=== PATIENT | male | born 1980 | race American Indian/Alaskan Native ===

== ENCOUNTER 2021-01-28 16:02 | Emergency (ER) | payer MEDICAID, OTHER | END 2021-01-28 18:02 | disposition left against medical advice (07) | LOC: DL.ED 16:02 | DX: Z53.21 Procedure and treatment not carried out due to patient leaving prior to being seen by health care provider (principal) | CPT/HCPCS: U0002 ==

== ENCOUNTER 2021-01-28 19:37 | Emergency (ER) | payer OTHER ==
[2021-01-28] MEDS ORDERED: Ondansetron 4 MG Tab.DIS PO ONE (19:38)
[2021-01-28] MEDS ORDERED: Sodium Chloride 0.9% 1,000 ML IV ONE (19:49)
[2021-01-28] MEDS ORDERED: Ondansetron 4 MG/2 ML SDV IVPUSH ONE (19:53)
--- NOTE | 2021-01-28 20:09 | EDM.PDOC ---
ED HPI GENERAL MEDICAL PROBLEM - General Chief Complaint: Respiratory Problem Stated Complaint: AMBULANCE Time Seen by Provider: 01/28/21 19:40 Source of Information: Reports: Patient History Limitations: Reports: No Limitations - History of Present Illness INITIAL COMMENTS - FREE TEXT/NARRATIVE: ED with c/o nausea and vomiting today. Emesis x 2. Fever cough some congestions. Presented to ED earlier today tested positive for COVID but left without being seen prior to lab result. Prior to EMS had sharp stabbing sensation in left chest under axxila that has resolved Abdomen Pain Score (Numeric/FACES): 3 - Related Data Allergies Allergy/AdvReac Type Severity Reaction Status Date / Time No Known Allergies Allergy Verified 01/28/21 19:45 Home Meds: Home Meds Acetaminophen [Tylenol Extra Strength] 1,000 mg PO BID 01/28/21 [History] Ibuprofen 400 mg PO 01/28/21 [History] glipiZIDE [Glucotrol] 01/28/21 [History] metFORMIN [Glucophage] 1,000 mg PO BID 01/28/21 [History] Past Medical History Cardiovascular History: Reports: High Cholesterol, Hypertension Endocrine/Metabolic History: Reports: Diabetes, Type II Hematologic History: Reports: None Oncologic (Cancer) History: Reports: None - Infectious Disease History Infectious Disease History: Reports: Chicken Pox, MRSA, Novel Coronavirus Social & Family History - Tobacco Use Tobacco Use Status *Q: Never Tobacco User - Caffeine Use Caffeine Use: Reports: Soda - Recreational Drug Use Recreational Drug Use: Yes Recreational Drug Type: Reports: Marijuana/Hashish ED ROS GENERAL - Review of Systems Review Of Systems: See Below Constitutional: Reports: Fever, Malaise, Decreased Appetite HEENT: Reports: No Symptoms Respiratory: Reports: Pleuritic Chest Pain, Cough Cardiovascular: Reports: No Symptoms GI/Abdominal: Reports: Diarrhea, Decreased Appetite, Nausea, Vomiting : Reports: No Symptoms Musculoskeletal: Reports: No Symptoms Skin: Reports: No Symptoms Neurological: Reports: No Symptoms Psychiatric: Reports: No Symptoms ED EXAM, GENERAL - Physical Exam Exam: See Below Exam Limited By: No Limitations General Appearance: Alert, Anxious Eye Exam: Bilateral Eye: EOMI, Periorbital Changes Ears: Normal External Exam Nose: Normal Inspection Throat/Mouth: Normal Inspection Head: Atraumatic, Normocephalic Neck: Normal Inspection Respiratory/Chest: No Respiratory Distress, Lungs Clear, Decreased Breath Sounds (bases) Cardiovascular: Normal Peripheral Pulses, Regular Rate, Rhythm GI/Abdominal: Normal Bowel Sounds, Soft, Non-Tender Back Exam: Normal Inspection, Full Range of Motion Extremities: Normal Inspection Neurological: Alert, Oriented, Normal Cognition Psychiatric: Normal Affect, Normal Mood Skin Exam: Warm, Dry, Intact, Normal Color #1 Interpretation EKG Date: 01/28/21 Time: 19:34 Rhythm: NSR Rate (Beats/Min): 75 [place]: Normal P-Wave: Present QRS: Normal ST-T: Normal QT: Normal Comparison: NA - No Prior EKG Course - Vital Signs Last Recorded V/S: Last Vital Signs Temp 99.1 F 01/28/21 19:40 Pulse 86 01/28/21 19:40 Resp 18 01/28/21 20:30 BP 133/86 01/28/21 20:30 Pulse Ox 98 01/28/21 20:30 - Orders/Labs/Meds Labs: Laboratory Tests 01/28/21 01/28/21 01/28/21 Range/Units 19:50 19:50 19:50 WBC 7.5 (5.0-10.0) 10^3/uL RBC 5.15 (4.6-6.2) 10^6/uL Hgb 14.5 (14.0-18.0) g/dL Hct 42.6 (40.0-54.0) % MCV 82.7 (80-100) fL MCH 28.2 (27.0-34.0) pg MCHC 34.0 (33.0-35.0) g/dL Plt Count 226 (150-450) 10^3/uL Neut % (Auto) 74.9 (42.2-75.2) % Lymph % (Auto) 11.5 L (20.5-50.1) % [place] % (Auto) 13.4 H (2-8) % Eos % (Auto) 0.1 L (1.0-3.0) % Baso % (Auto) 0.1 (0.0-1.0) % PT 10.3 (9.0-12.0) SEC INR 1.0 (0.9-1.2) D-Dimer, Quantitative 299 (0-400) ng/mL Sodium 136 (136-145) mmol/L Potassium 3.5 (3.5-5.1) mmol/L Chloride 100 (98-107) mmol/L Carbon Dioxide 20 L (21-32) mmol/L Anion Gap 19.5 H (7-13) mEq/L BUN 13 (7-18) mg/dL Creatinine 0.94 (0.70-1.30) mg/dL Est Cr Clr Drug Dosing 108.94 mL/min Estimated GFR (MDRD) > 60 BUN/Creatinine Ratio 13.8 (No establ ref range) Glucose 184 H (70-99) mg/dL Lactic Acid (0.4-2.0) mmol/L Calcium 8.5 (8.5-10.1) mg/dL Magnesium 1.8 (1.8-2.4) mg/dL Total Bilirubin 0.5 (0.2-1.0) mg/dL AST 21 (15-37) U/L ALT 43 (16-63) U/L Alkaline Phosphatase 73 (46-116) U/L Troponin I High Sens 9 (<=76) pg/mL C-Reactive Protein 2.4 H (0.0-0.9) mg/dL Total Protein 7.6 (6.4-8.2) g/dL Albumin 3.7 (3.4-5.0) g/dL Globulin 3.9 Albumin/Globulin Ratio 0.9 Amylase 32 (25-115) U/L Lipase 82 (73-393) U/L /30/21 Range/Units 19:50 WBC (5.0-10.0) 10^3/uL RBC (4.6-6.2) 10^6/uL Hgb (14.0-18.0) g/dL Hct (40.0-54.0) % MCV (80-100) fL MCH (27.0-34.0) pg MCHC (33.0-35.0) g/dL Plt Count (150-450) 10^3/uL Neut % (Auto) (42.2-75.2) % Lymph % (Auto) (20.5-50.1) % [place] % (Auto) (2-8) % Eos % (Auto) (1.0-3.0) % Baso % (Auto) (0.0-1.0) % PT (9.0-12.0) SEC INR (0.9-1.2) D-Dimer, Quantitative (0-400) ng/mL Sodium (136-145) mmol/L Potassium (3.5-5.1) mmol/L Chloride (98-107) mmol/L Carbon Dioxide (21-32) mmol/L Anion Gap (7-13) mEq/L BUN (7-18) mg/dL Creatinine (0.70-1.30) mg/dL Est Cr Clr Drug Dosing mL/min Estimated GFR (MDRD) BUN/Creatinine Ratio (No establ ref range) Glucose (70-99) mg/dL Lactic Acid 1.1 (0.4-2.0) mmol/L Calcium (8.5-10.1) mg/dL Magnesium (1.8-2.4) mg/dL Total Bilirubin (0.2-1.0) mg/dL AST (15-37) U/L ALT (16-63) U/L Alkaline Phosphatase (46-116) U/L Troponin I High Sens (<=76) pg/mL C-Reactive Protein (0.0-0.9) mg/dL Total Protein (6.4-8.2) g/dL Albumin (3.4-5.0) g/dL Globulin Albumin/Globulin Ratio Amylase (25-115) U/L Lipase (73-393) U/L Meds: Medications Discontinued Medications Generic Name Dose Route Start Last Admin Trade Name Freq PRN Reason Stop Dose Admin Sodium Chloride 1,000 mls @ 200 mls/hr 01/28/21 19:49 01/28/21 20:00 Normal Saline IV 01/29/21 00:48 200 mls/hr .BOLUS ONE Administration Ondansetron HCl 4 mg 01/28/21 19:53 01/28/21 20:00 Ondansetron 4 Mg/2 Ml Sdv IVPUSH 01/28/21 19:54 4 mg ONETIME ONE Administration Ondansetron HCl Confirm 01/28/21 21:31 Ondansetron 4 Mg Tab.Dis Administered 01/28/21 21:32 Dose 12 mg .ROUTE .STK-MED ONE Departure - Departure Time of Disposition: 21:13 Disposition: Home, Self-Care 01 Condition: Good Clinical Impression: COVID-19 Nausea & vomiting Qualifiers: Vomiting type: bilious vomiting Qualified Code(s): R11.14 - Bilious vomiting - Discharge Information *PRESCRIPTION DRUG MONITORING PROGRAM REVIEWED*: No *COPY OF PRESCRIPTION DRUG MONITORING REPORT IN PATIENT LUTHER: No Instructions: COVID-19 Frequently Asked Questions, Nausea and Vomiting, Adult Forms: ED Department Discharge Additional Instructions: humidification tylenol 500mg every 4 hours as needed for fever/discomfort diet as tolerated quarantine over counter cough cold medicatio (high blood pressure type) per label directions zofran 4mg ODT every 4 hours as needed for nausea vomiting urgent follow up severe difficulty breathing, uncontrolled vomiting liquids small amount more frequently don't take metformin until nausea vomiting resolved. montior blood sugars
[2021-01-28 20:21] LABS: ANION GAP 19.5 mEq/L (7-13); CHLORIDE,CL 100 mmol/L (98-107); SODIUM,NA 136 mmol/L (136-145)
--- NOTE | 2021-01-28 21:11 | CR ---
PROCEDURE INFORMATION: Exam: XR Chest Exam date and time: 01/28/2021 8:42 PM Age: 40 years old Clinical indication: Other: Chest pain; Additional info: Covid, left lateral chest pain TECHNIQUE: Imaging protocol: XR of the chest. Views: 1 view. COMPARISON: No relevant prior studies available. FINDINGS: Lungs: Unremarkable. No consolidation. Pleural spaces: Unremarkable. No pleural effusion. No pneumothorax. Heart/Mediastinum: Unremarkable. No cardiomegaly. Bones/joints: No evidence of acute osseous abnormality. IMPRESSION: No radiographically apparent acute abnormality in the chest.
[2021-01-28] MEDS ORDERED: Ondansetron 4 MG Tab.DIS ONE (21:31)
== END 2021-01-28 21:45 | disposition home or self-care (01) ==
LOC: DL.ED 19:37
DX: R11.14 Bilious vomiting (principal); U07.1 COVID-19; E78.00 Pure hypercholesterolemia, unspecified; I10 Essential (primary) hypertension; E11.9 Type 2 diabetes mellitus without complications; Z79.84 Long term (current) use of oral hypoglycemic drugs; Z79.899 Other long term (current) drug therapy
CPT/HCPCS: 36415; 71045; 80053; 82150; 83605; 83690; 83735; 84484; 85025; 85379; 85610; 86140; 87040; 93005; 96374; 99285; A9270; J2405; J7030

== ENCOUNTER 2022-03-18 18:38 | Emergency (ER) | payer OTHER ==
[2022-03-18] MEDS ORDERED: methylPREDNISolone Acetate 40 MG/ML SDV IM ONE (20:17)
== END 2022-03-18 20:31 | disposition home or self-care (01) ==
LOC: DL.ED 18:38
DX: T78.3XXA Angioneurotic edema, initial encounter (principal); I10 Essential (primary) hypertension; E10.9 Type 1 diabetes mellitus without complications; Z79.84 Long term (current) use of oral hypoglycemic drugs; Z79.899 Other long term (current) drug therapy
CPT/HCPCS: 96372; 99284; J1030

== ENCOUNTER 2023-11-18 17:39 | Emergency (ER) | payer BC, OTHER ==
[2023-11-18 18:13] LABS: BASOPHILS PERCENT AUTO 0.4 % (0.0-1.0); HEMATOCRIT 45.5 % (40.0-54.0); HEMOGLOBIN 15.4 g/dL (14.0-18.0); MEAN CORPUSCULAR HEMOGLOBIN 29.2 pg (27.0-34.0); MEAN CORPUSCULAR HGB CONC 33.8 g/dL (33.0-35.0); MEAN CORPUSCULAR VOLUME 86.3 fL (80-100); MONOCYTES PERCENT AUTO 9.1 % (2-8); NEUTROPHILS PERCENT AUTO 62.5 % (42.2-75.2); PLATELET COUNT,PLT 305 10^3/uL (150-450); RED BLOOD CELL COUNT 5.27 10^6/uL (4.6-6.2); WHITE BLOOD CELL COUNT,WBC 9.9 10^3/uL (5.0-10.0)
[2023-11-18] MEDS: Ketorolac 30 MG/ML SDV IVPUSH ONE (18:13)
[2023-11-18] MEDS: Sodium Chloride 0.9% 1,000 ML IV SCH (18:15)
[2023-11-18 18:32] LABS: APPEARANCE,URINE CLEAR (CLEAR); BILIRUBIN,URINE NEGATIVE (NEGATIVE); COLOR,URINE YELLOW (YELLOW); GLUCOSE,URINE NEGATIVE (NEGATIVE); KETONES,URINE NEGATIVE (NEGATIVE); LEUKOCYTE ESTERASE,URINE NEGATIVE (NEGATIVE); NITRITE,URINE NEGATIVE (NEGATIVE); OCCULT BLOOD,URINE NEGATIVE (NEGATIVE); PH,URINE 5.5 (5.0-9.0); PROTEIN,URINE NEGATIVE (NEGATIVE); UROBILINOGEN,URINE 0.2 mg/dL (0.2-1.0)
[2023-11-18 18:41] LABS: ALANINE AMINOTRANSFERASE,ALT 24 U/L (16-63); ALKALINE PHOSPHATASE 75 U/L (46-116); AMYLASE 40 U/L (25-115); ANION GAP 14.2 mEq/L (7-13); ASPARTATE AMNIOTRANSFERASE,AST 14 U/L (15-37); BILIRUBIN TOTAL 0.6 mg/dL (0.2-1.0); BLOOD UREA NITROGEN,BUN 13 mg/dL (7-18); BUN/CREATININE RATIO 12.4 (No establ ref range); CALCIUM 9.6 mg/dL (8.5-10.1); CARBON DIOXIDE,CO2 27 mmol/L (21-32); CHLORIDE,CL 102 mmol/L (98-107); CREATININE 1.05 mg/dL (0.70-1.30); EST CRCL DRUG DOSING (CG) 94.63 mL/min; GLUCOSE RANDOM 183 mg/dL (70-99); LIPASE 33 U/L (16-77); POTASSIUM,K 4.2 mmol/L (3.5-5.1); PROTEIN TOTAL,TP 7.9 g/dL (6.4-8.2); SODIUM,NA 139 mmol/L (136-145)
[2023-11-18 18:47] LABS: C-REACTIVE PROTEIN < 0.50 ng/dL (<=0.50); ESTIMATED GFR 91 mL/min (>=60)
[2023-11-18 18:49] LABS: RBC,URINE 0-5 /HPF (0-5)
[2023-11-18 18:50] LABS: BACTERIA,URINE FEW /HPF (0-FEW/HPF); EPITHELIAL CELLS,URINE FEW /HPF (NOT SEEN); MUCUS,URINE FEW /LPF (NOT SEEN)
[2023-11-18] MEDS: Iopamidol 612 MG/ML 100 ML Bottle IVPUSH ONE (19:14)
[2023-11-18] MEDS: Azithromycin 250 MG Tab PO ONE (20:35)
[2023-11-18] MEDS: cefTRIAXone 500 MG Vial IM ONE (20:35)
[2023-11-18] MEDS: Lidocaine 1% 5 ML VIAL INFILT ONE (20:35)
[2023-11-18] MEDS: Lidocaine 1% 5 ML VIAL ONE (20:39)
[2023-11-20 11:46] LABS: C.TRACHOMATIS BY TMA Negative (Negative); N.GONORRHOEAE BY TMA Negative (Negative); SOURCE URINE
== END 2023-11-18 20:55 | disposition home or self-care (01) ==
LOC: DL.ED 17:39
DX: A64 Unspecified sexually transmitted disease (principal); I10 Essential (primary) hypertension; E78.00 Pure hypercholesterolemia, unspecified; E10.9 Type 1 diabetes mellitus without complications; Z79.84 Long term (current) use of oral hypoglycemic drugs; Z79.899 Other long term (current) drug therapy; Z86.16 Personal history of COVID-19
CPT/HCPCS: 36415; 74177; 80053; 81001; 82150; 83605; 83690; 85025; 86140; 86592; 86803; 87340; 87491; 87591; 96372; 96374; 99284; A9270; J0696; J1885; J7030; Q9967; 86706; J3490

== ENCOUNTER 2024-05-07 17:13 | Emergency (ER) | payer BC, OTHER ==
[2024-05-07] MEDS: Dexamethasone 4 MG/ML SDV IM ONE (17:48)
== END 2024-05-07 18:05 | disposition home or self-care (01) ==
LOC: DL.ED 17:13
DX: M54.10 Radiculopathy, site unspecified (principal); I10 Essential (primary) hypertension; E10.9 Type 1 diabetes mellitus without complications; Z86.16 Personal history of COVID-19; Z79.84 Long term (current) use of oral hypoglycemic drugs; Z79.899 Other long term (current) drug therapy
CPT/HCPCS: 82947; 96372; 99284; J1100